=== PATIENT | female | born 1985 | race Caucasian/White ===

== ENCOUNTER 2017-12-26 18:18 | Emergency (ER) | payer OTHER, MEDICAID ==
[~2017-12-26] VITALS: Ht 170.2 cm; Wt 65.8 kg
[~2017-12-26 18:18] MED LIST: ALPRAZOLAM 0.0.25 M1 PO; BACTRIM DS TAB1 EACH PO; CLEOCIN HCL150 MG PO; HYDROCODON-ACE1 EAC7 PO; IRON325 PO; MAGIC MOUTHWASH SWISH&SPIT; NOHOMEMEDICATIONS; VISTARIL 25 MG25 M1 PO
[2017-12-26 19:00] LABS: ABSOLUTE BASOPHILS 0.1 thou/uL (0.0-0.2); ABSOLUTE LYMPHOCYTES 2.4 thou/uL (0.8-5.3); ABSOLUTE MONOCYTES 0.5 thou/uL (0.0-1.2); ABSOLUTE NEUTROPHILS 2.5 thou/uL (1.6-8.1); BASOPHILS 1.4 %; EOSINOPHILS 0.6 %; HEMATOCRIT 47.7 % (37.0-47.0); HEMOGLOBIN 16.9 gm/dL (12.0-15.0); LYMPHOCYTES 43.9 %; MCH 39.1 pg (26.0-34.0); MCHC 35.5 g/dL (28.0-37.0); MCV 110.1 fL (80.0-100.0); MONOCYTES 9.7 %; MPV 7.9 fl. (7.2-11.1); NUCLEATED RBCS 0 /100WBC; PLATELET COUNT* 239 thou/uL (150-400); POLYS 44.4 %; RBC 4.33 mil/uL (4.20-5.00); RDW-CV 13.2 % (10.5-14.5); WBC 5.5 thou/uL (4.0-11.0)
[2017-12-26 19:09] LABS: ANION GAP 9 mmol/L (7-16); BUN 10 mg/dL (7-18); CALCIUM 9.2 mg/dL (8.5-10.1); CHLORIDE 104 mmol/L (98-107); CO2 33 mmol/L (21-32); CREATININE 0.8 mg/dL (0.6-1.3); GLUCOSE 94 mg/dL (70-99); POTASSIUM 3.3 mmol/L (3.5-5.1); SODIUM 146 mmol/L (136-145)
[2017-12-26 19:16] LABS: ALBUMIN 4.1 g/dL (3.4-5.0); ALKALINE PHOSPHATASE 256 U/L (46-116); LIPASE 189 U/L (73-393); SGOT 420 U/L (15-37); SGPT 211 U/L (30-65); TOTAL PROTEIN 8.3 g/dL (6.4-8.2); TROPONIN-I LEVEL <0.06 ng/mL (<0.06)
[2017-12-26 19:32] LABS: URINE BILIRUBIN NEGATIVE (Negative); URINE BLOOD TRACE (Negative); URINE CLARITY CLEAR; URINE COLOR YELLOW; URINE GLUCOSE-RANDOM NEGATIVE (Negative); URINE KETONES NEGATIVE (Negative); URINE LEUKOCYTES-REFLEX NEGATIVE (Negative); URINE NITRITE-REFLEX NEGATIVE (Negative); URINE PROTEIN NEGATIVE (Negative); URINE UROBILINOGEN 0.2 E.U./dl (0.2-1.0)
[2017-12-26 20:03] LABS: PLATELET ESTIMATE ADEQUATE
[2017-12-26 20:04] LABS: MICROCYTES 1+
[2017-12-26] MEDS ORDERED: OMEPRAZOLE 20 M20 MG PO (22:28)
[2017-12-26] MEDS ORDERED: ZOFRAN4 MG PO (22:28)
[2017-12-26 22:40] VITALS: BP 128/68
--- NOTE | 2017-12-27 14:43 | EKG ---
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
== END 2017-12-26 22:50 | disposition home or self-care (01) ==
LOC: M.ERS 18:18
PROVIDERS: Nurse Practitioner Family
DX: R12 Heartburn (principal); R10.10 Upper abdominal pain, unspecified; Z88.5 Allergy status to narcotic agent; Z98.890 Other specified postprocedural states

== ENCOUNTER → 2018-01-13 | Outpatient (CLI) | payer OTHER, MEDICAID ==
[~2018-01-13] MED LIST changes: +OMEPRAZOLE 20 M20 MG PO; +ZOFRAN4 MG PO
[2018-01-13 15:03] LABS: ABSOLUTE LYMPHOCYTES 1.3 thou/uL (0.8-5.3); ABSOLUTE MONOCYTES 0.4 thou/uL (0.0-1.2); ABSOLUTE NEUTROPHILS 2.9 thou/uL (1.6-8.1); EOSINOPHILS 0.6 %; HEMATOCRIT 46.2 % (37.0-47.0); HEMOGLOBIN 16.5 gm/dL (12.0-15.0); LYMPHOCYTES 27.5 %; MCH 38.9 pg (26.0-34.0); MCHC 35.6 g/dL (28.0-37.0); MCV 109.1 fL (80.0-100.0); MONOCYTES 8.8 %; NUCLEATED RBCS 0 /100WBC; PLATELET COUNT* 179 thou/uL (150-400); POLYS 62.1 %; RBC 4.23 mil/uL (4.20-5.00); RDW-CV 12.6 % (10.5-14.5); WBC 4.6 thou/uL (4.0-11.0)
[2018-01-13 15:17] LABS: ALBUMIN 4.3 g/dL (3.4-5.0); CALCIUM 9.7 mg/dL (8.5-10.1); CREATININE 0.7 mg/dL (0.6-1.3); POTASSIUM 3.9 mmol/L (3.5-5.1); TOTAL BILIRUBIN 1.4 mg/dL (<0.1-1.0); TOTAL PROTEIN 8.7 g/dL (6.4-8.2)
== END ==
LOC: M.LAB 14:47
PROVIDERS: Nurse Practitioner Family
DX: K21.9 Gastro-esophageal reflux disease without esophagitis (principal); R10.13 Epigastric pain

== ENCOUNTER 2019-03-31 14:14 | Emergency (ER) | payer OTHER, MEDICAID ==
[~2019-03-31] VITALS: Ht 172.7 cm; Wt 72.6 kg
[2019-03-31] MEDS ORDERED: BIRTH CONTROL (14:28)
[2019-03-31 14:47] LABS: URINE BILIRUBIN NEGATIVE (Negative); URINE BLOOD NEGATIVE (Negative); URINE CLARITY CLEAR; URINE COLOR YELLOW; URINE GLUCOSE-RANDOM NEGATIVE (Negative); URINE KETONES NEGATIVE (Negative); URINE LEUKOCYTES-REFLEX NEGATIVE (Negative); URINE NITRITE-REFLEX NEGATIVE (Negative); URINE PROTEIN NEGATIVE (Negative); URINE SPECIFIC GRAVITY 1.015 (1.005-1.030); URINE UROBILINOGEN 0.2 E.U./dl (0.2-1.0)
[2019-03-31 14:48] LABS: ABSOLUTE BASOPHILS 0.1 thou/uL (0.0-0.2); ABSOLUTE LYMPHOCYTES 2.4 thou/uL (0.8-5.3); ABSOLUTE MONOCYTES 0.4 thou/uL (0.0-1.2); ABSOLUTE NEUTROPHILS 3.7 thou/uL (1.6-8.1); BASOPHILS 0.9 %; EOSINOPHILS 0.7 %; HEMATOCRIT 42.3 % (37.0-47.0); HEMOGLOBIN 14.5 gm/dL (12.0-15.0); LYMPHOCYTES 36.9 %; MCH 33.8 pg (26.0-34.0); MCHC 34.2 g/dL (28.0-37.0); MCV 98.8 fL (80.0-100.0); MONOCYTES 5.6 %; MPV 8.9 fl. (7.2-11.1); NUCLEATED RBCS 0 /100WBC; PLATELET COUNT* 268 thou/uL (150-400); POLYS 55.9 %; RBC 4.28 mil/uL (4.20-5.00); RDW-CV 13.7 % (10.5-14.5); WBC 6.5 thou/uL (4.0-11.0)
[2019-03-31 15:01] LABS: ALBUMIN 3.8 g/dL (3.4-5.0); CALCIUM 9.3 mg/dL (8.5-10.1); CREATININE 0.8 mg/dL (0.6-1.3); POTASSIUM 3.2 mmol/L (3.5-5.1); TOTAL BILIRUBIN 0.6 mg/dL (<0.1-1.0); TOTAL PROTEIN 7.9 g/dL (6.4-8.2)
[2019-03-31] MEDS ORDERED: HYDROCODON-ACE1 EAC7 PO (16:45)
[2019-03-31] MEDS ORDERED: ZOFRAN ODT4 MG PO (16:45)
[2019-03-31 17:06] VITALS: BP 116/67
== END 2019-03-31 17:08 | disposition home or self-care (01) ==
LOC: M.ERS 14:14
PROVIDERS: Personal Emergency Response Attendant
DX: R10.84 Generalized abdominal pain (principal); R11.2 Nausea with vomiting, unspecified; F17.210 Nicotine dependence, cigarettes, uncomplicated; Z88.5 Allergy status to narcotic agent; Z88.8 Allergy status to other drugs, medicaments and biological substances; Z88.6 Allergy status to analgesic agent; Z86.2 Personal history of diseases of the blood and blood-forming organs and certain disorders involving the immune mechanism; Z90.49 Acquired absence of other specified parts of digestive tract

== ENCOUNTER 2019-06-30 21:39 | Emergency (ER) | payer OTHER, MEDICAID ==
[~2019-06-30] VITALS: Ht 172.7 cm; Wt 65.8 kg
[~2019-06-30 21:39] MED LIST changes: +BIRTH CONTROL; +ZOFRAN ODT4 MG PO
[2019-06-30] MEDS ORDERED: IRON18 M1 PO (21:49)
[2019-06-30 23:10] LABS: URINE BLOOD NEGATIVE (Negative); URINE CLARITY CLEAR; URINE COLOR DARK YELLOW; URINE GLUCOSE-RANDOM NEGATIVE (Negative); URINE KETONES TRACE (Negative); URINE LEUKOCYTES-REFLEX NEGATIVE (Negative); URINE NITRITE-REFLEX NEGATIVE (Negative); URINE PROTEIN TRACE (Negative); URINE SPECIFIC GRAVITY >= 1.030 (1.005-1.030)
[2019-06-30 23:11] LABS: URINE BILIRUBIN 1+ (Negative)
[2019-06-30 23:13] LABS: ICTOTEST (BILI CONFIRMATORY) Negative (Negative)
[2019-06-30] MEDS ORDERED: IBUPROFEN 800800 MG PO (23:46)
[2019-07-01] VITALS: BP 128/76
== END 2019-06-30 23:40 | disposition home or self-care (01) ==
LOC: M.ERS 21:39
PROVIDERS: Personal Emergency Response Attendant
DX: S30.0XXA Contusion of lower back and pelvis, initial encounter (principal); X58.XXXA Exposure to other specified factors, initial encounter; Y92.89 Other specified places as the place of occurrence of the external cause; Y93.89 Activity, other specified; Y99.8 Other external cause status

== ENCOUNTER 2020-03-31 07:52 | Emergency (ER) | payer OTHER ==
[~2020-03-31] VITALS: Ht 172.7 cm; Wt 70.3 kg
[~2020-03-31 07:52] MED LIST changes: +IBUPROFEN 800800 MG PO; +IRON18 M1 PO
[2020-03-31] MEDS ORDERED: NORCO 5-325 TA1 EAC1 PO (08:47)
[2020-03-31 10:24] VITALS: BP 110/70
== END 2020-03-31 10:24 | disposition home or self-care (01) ==
LOC: M.ERS 07:52
DX: S30.0XXA Contusion of lower back and pelvis, initial encounter (principal); Z90.49 Acquired absence of other specified parts of digestive tract; Z86.2 Personal history of diseases of the blood and blood-forming organs and certain disorders involving the immune mechanism; Z88.6 Allergy status to analgesic agent; Z88.8 Allergy status to other drugs, medicaments and biological substances; W10.8XXA Fall (on) (from) other stairs and steps, initial encounter; Y93.89 Activity, other specified; Y92.89 Other specified places as the place of occurrence of the external cause; Y99.8 Other external cause status

== ENCOUNTER 2020-04-15 17:08 | Inpatient (IN) | payer OTHER ==
[~2020-04-15] VITALS: Ht 172.7 cm; Wt 76.4 kg
[~2020-04-15 17:08] MED LIST changes: +NORCO 5-325 TA1 EAC1 PO
[2020-04-15 17:21] VITALS: BP 120/59
[2020-04-15 17:38] LABS: URINE BILIRUBIN NEGATIVE (Negative); URINE BLOOD TRACE (Negative); URINE CLARITY CLEAR; URINE COLOR YELLOW; URINE GLUCOSE-RANDOM NEGATIVE (Negative); URINE KETONES 2+ (Negative); URINE LEUKOCYTES-REFLEX NEGATIVE (Negative); URINE NITRITE-REFLEX NEGATIVE (Negative); URINE PROTEIN NEGATIVE (Negative); URINE SPECIFIC GRAVITY >= 1.030 (1.005-1.030); URINE UROBILINOGEN 0.2 E.U./dl (0.2-1.0)
[2020-04-15 17:39] LABS: ABSOLUTE LYMPHOCYTES 1.3 thou/uL (0.8-5.3); ABSOLUTE MONOCYTES 0.3 thou/uL (0.0-1.2); ABSOLUTE NEUTROPHILS 6.7 thou/uL (1.6-8.1); BASOPHILS 0.3 %; HEMATOCRIT 47.6 % (37.0-47.0); HEMOGLOBIN 16.6 gm/dL (12.0-15.0); LYMPHOCYTES 15.5 %; MCH 35.8 pg (26.0-34.0); MCHC 34.9 g/dL (28.0-37.0); MCV 102.5 fL (80.0-100.0); MPV 8.2 fl. (7.2-11.1); NUCLEATED RBCS 0 /100WBC; PLATELET COUNT* 312 thou/uL (150-400); POLYS 81.2 %; RBC 4.64 mil/uL (4.20-5.00); RDW-CV 13.3 % (10.5-14.5); WBC 8.3 thou/uL (4.0-11.0)
[2020-04-15 17:46] LABS: CALCIUM 9.6 mg/dL (8.5-10.1); CREATININE 0.9 mg/dL (0.6-1.3); POTASSIUM 3.6 mmol/L (3.5-5.1)
[2020-04-15 17:51] LABS: ALBUMIN 4.3 g/dL (3.4-5.0); TOTAL BILIRUBIN 0.6 mg/dL (<0.1-1.0); TOTAL PROTEIN 8.5 g/dL (6.4-8.2)
[2020-04-15 18:24] LABS: AMP/METHAMP Negative (Negative); BARBITURATES Negative (Negative); BENZODIAZEPINES Negative (Negative); COCAINE Negative (Negative); METHADONE Negative (Negative); OPIATES Negative (Negative); PCP Negative (Negative); THC POSITIVE (Negative)
[2020-04-15 20:21] VITALS: BP 132/74
[2020-04-15 20:45] LABS: MAGNESIUM 1.8 mg/dL (1.8-2.4); PHOSPHORUS* 4.9 mg/dL (2.5-4.9)
[2020-04-16] VITALS: BP 115/71
[2020-04-16 04:00] VITALS: BP 118/72
[2020-04-16 07:20] VITALS: BP 126/78
--- NOTE | 2020-04-16 08:02 | NUR ---
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 PT IS ABLE TO COMMUNICATE HER NEEDS TO STAFF EFFECTIVELY. CURRENT PAIN MEDICATION REGIMEN HAS BEEN ADEQUATE FOR CONTROLLING HER PAIN UP TO THIS TIME. CURRENTLY ORDERED NAUSEA MEDICATION HAS BEEN ADEQUATE FOR CONTROLLING HER NAUSEA UP TO THIS TIME; PT DENIES VOMITING WHILE IN HOSPITAL. SHE HAS BEEN NPO, EXCEPT FOR SOME ICE CHIPS, SINCE MIDNIGHT.
--- NOTE | 2020-04-16 11:36 | EKG ---
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 : 1985 Requested By: Shikha Iniguez Order Number: [id number] MD: Grant Fritz Measurements Intervals [place] Rate: 132 P: 47 NV: 160 QRS: 264 QRSD: 138 T: -55 QT: 387 QTc: 574 Interpretive Statements Sinus tachycardia Nonspecific IVCD with LAD Borderline T abnormalities, diffuse leads Baseline wander in lead(s) II,aVR,aVF Compared to ECG 12/26/2017 18:41:45 T-wave abnormality now present Sinus rhythm no longer present Electronically Signed On 04-16-2020 11:35:56 CDT by Grant Fritz [email or web address] <ELECTRONICALLY SIGNED> By: Grant Fritz MD, [facility] 04/16/20 1135 1737 1737 Grant Fritz MD, [facility] /EPI
[2020-04-16 12:30] VITALS: BP 119/81
--- NOTE | 2020-04-16 13:41 | NUR ---
Pt is A&O. Resides at home with her SO and kids. Independent. No DME. No hx of HH or SNF. Pt informed that she has [employer] State insurance, CM let pre-cert know. Pt's PCP is Dr Michael Govea [phone]. Goal is home at la. Following.
[2020-04-16 16:00] VITALS: BP 109/70
--- NOTE | 2020-04-17 09:10 | NUR ---
Per pre cert, Pt's [employer] insurance is inactive.
--- NOTE | 2020-04-17 09:20 | NUR ---
PT LEFT HOSPITAL AMA AT APPROXIMATELY 22:05 ON 04/16/2020. REGIONAL OPERATIONS DIRECTOR RECEIVED NOTIFICATION THAT PT WAS HAVING VISUAL AND TACTILE HALLUCINATIONS, WHICH SHE HAD PREVIOUSLY DENIED, AND THAT SHE HAD REMOVED HER IV. REGIONAL OPERATIONS DIRECTOR WENT TO GET PT AN ATIVAN DOSE, BUT PT HAD PACKED UP HER BELONGINGS AND RAN DOWN HELLER AND EXITED THE BULIDING DOWN BY PHARMACY WINDOW ON FIRST FLOOR. SECURITY WAS NOTIFIED IMMEDIATELY AND REPORTED SEEING HER LEAVE THE PROPERTY; THEY PROMPTLY NOTIFIED [employer].
== END 2020-04-16 22:05 | disposition left against medical advice (07) | DRG 439 ==
LOC: M.ERS 17:08 → M.TBA-ER 19:17 → M.2W 20:30
PROVIDERS: Nurse Practitioner Family; ADMIT Internal Medicine; ATTEND Internal Medicine
DX: K85.90 Acute pancreatitis without necrosis or infection, unspecified (principal); F10.230 Alcohol dependence with withdrawal, uncomplicated; R65.10 Systemic inflammatory response syndrome (SIRS) of non-infectious origin without acute organ dysfunction; F41.9 Anxiety disorder, unspecified; E07.9 Disorder of thyroid, unspecified; F12.90 Cannabis use, unspecified, uncomplicated; Z90.49 Acquired absence of other specified parts of digestive tract; Z88.6 Allergy status to analgesic agent; Z88.8 Allergy status to other drugs, medicaments and biological substances; Z53.29 Procedure and treatment not carried out because of patient's decision for other reasons

== ENCOUNTER 2021-08-12 01:35 | Emergency (ER) | payer OTHER, MEDICAID ==
[~2021-08-12] VITALS: Ht 172.7 cm; Wt 65.8 kg
[2021-08-12 02:19] LABS: URINE BILIRUBIN NEGATIVE (Negative); URINE BLOOD TRACE (Negative); URINE CLARITY SL CLOUDY; URINE COLOR DARK YELLOW; URINE GLUCOSE-RANDOM NEGATIVE (Negative); URINE KETONES NEGATIVE (Negative); URINE PROTEIN NEGATIVE (Negative); URINE SPECIFIC GRAVITY 1.025 (1.005-1.030); URINE UROBILINOGEN 0.2 E.U./dl (0.2-1.0)
[2021-08-12 02:20] LABS: URINE LEUKOCYTES-REFLEX 2+ (Negative); URINE NITRITE-REFLEX POSITIVE (Negative)
[2021-08-12 02:24] LABS: AMP/METHAMP POSITIVE (Negative); BARBITURATES Negative (Negative); BENZODIAZEPINES POSITIVE (Negative); COCAINE Negative (Negative); METHADONE Negative (Negative); OPIATES POSITIVE (Negative); PCP Negative (Negative); THC POSITIVE (Negative)
[2021-08-12 02:44] LABS: ABSOLUTE BASOPHILS 0.1 thou/uL (0.0-0.2); ABSOLUTE MONOCYTES 0.5 thou/uL (0.0-1.2); ABSOLUTE NEUTROPHILS 1.7 thou/uL (1.6-8.1); BASOPHILS 1.3 %; EOSINOPHILS 0.8 %; HEMATOCRIT 43.2 % (37.0-47.0); LYMPHOCYTES 47.2 %; MCH 36.5 pg (26.0-34.0); MCHC 34.6 g/dL (28.0-37.0); MCV 105.5 fL (80.0-100.0); MONOCYTES 10.9 %; MPV 8.2 fl. (7.2-11.1); NUCLEATED RBCS 0 /100WBC; POLYS 39.8 %; RDW-CV 14.1 % (10.5-14.5); WBC 4.2 thou/uL (4.0-11.0)
[2021-08-12 02:53] LABS: ALBUMIN 3.6 g/dL (3.4-5.0); CALCIUM 8.7 mg/dL (8.5-10.1); CREATININE 0.7 mg/dL (0.6-1.3); TOTAL BILIRUBIN 0.6 mg/dL (<0.1-1.0); TOTAL PROTEIN 7.3 g/dL (6.4-8.2)
[2021-08-12 03:27] LABS: MACROCYTES 1+; PLATELET COUNT* 192 thou/uL (150-400); PLATELET ESTIMATE ADEQUATE
[2021-08-12] MEDS ORDERED: CARAFATE 1 GM TA1 G1 PO (03:43)
[2021-08-12] MEDS ORDERED: OMEPRAZOLE40 MG PO (03:43)
[2021-08-12] MEDS ORDERED: ZOFRAN ODT4 MG PO (03:43)
[2021-08-12] MEDS ORDERED: KLOR-CON M2020 MEQ PO (03:51)
[2021-08-12 03:55] LABS: CASTS None Seen /LPF (None Seen); SQUAMOUS >10 Many /LPF (0-3)
[2021-08-12 03:56] LABS: BACTERIA-REFLEX >30 Many /HPF (None Seen); CRYSTALS None Seen /LPF (None Seen); URINE RBC 0-2 Rare /HPF (0-2); URINE WBC-REFLEX >25 Many /HPF (0-5)
[2021-08-12 06:15] VITALS: BP 116/77
--- NOTE | 2021-08-12 06:22 | EKG ---
[place] [address] ELECTROCARDIOGRAM REPORT Name: TANIA DOMINGUEZ PATRICK Room: 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
== END 2021-08-12 06:15 | disposition home or self-care (01) ==
LOC: M.ERS 01:35
PROVIDERS: Personal Emergency Response Attendant
DX: N39.0 Urinary tract infection, site not specified (principal); K29.00 Acute gastritis without bleeding; K70.10 Alcoholic hepatitis without ascites; E87.6 Hypokalemia; F19.10 Other psychoactive substance abuse, uncomplicated; Z90.89 Acquired absence of other organs; Z90.49 Acquired absence of other specified parts of digestive tract; Z88.5 Allergy status to narcotic agent; Z88.6 Allergy status to analgesic agent